=== PATIENT | male | born 1950 | race Two or more races ===

== ENCOUNTER → 2017-01-27 | Outpatient (CLI) | payer MEDICARE, MEDICAID ==
[~2017-01-27] MED LIST: AMLO10TA2 PO; ASPI-515 PO; BIFI4CAP PO; CARV6.252 PO; CEPH-376 PO; CHOL500050 PO; CINA30TA PO; CULTURELLE; EMLA CREAM; ENAL20TA PO; GABA300C10 PO; GLYB5TAB3 PO; INSU100I28 SQ; INSULIN ASPART SQ-INSULIN; LINA5TAB PO; PANT40TA5 PO; PRAS10TA4 PO; SEVE800T PO; SIMV40TA3 PO; TICA90TA PO
== END | disposition home or self-care (01) ==
LOC: CFH 07:44
PROVIDERS: ATTEND Nurse Practitioner Family
DX: L89.620 Pressure ulcer of left heel, unstageable (principal); M21.6X2 Other acquired deformities of left foot; M25.475 Effusion, left foot

== ENCOUNTER → 2017-02-02 | Outpatient (CLI) | payer MEDICARE, MEDICAID | END | disposition home or self-care (01) | LOC: WOUND 10:07 | PROVIDERS: ATTEND Nurse Practitioner Family | DX: T87.89 Other complications of amputation stump (principal); E11.621 Type 2 diabetes mellitus with foot ulcer; L89.620 Pressure ulcer of left heel, unstageable; E11.622 Type 2 diabetes mellitus with other skin ulcer; L97.811 Non-pressure chronic ulcer of other part of right lower leg limited to breakdown of skin; E11.51 Type 2 diabetes mellitus with diabetic peripheral angiopathy without gangrene; E11.22 Type 2 diabetes mellitus with diabetic chronic kidney disease; I12.0 Hypertensive chronic kidney disease with stage 5 chronic kidney disease or end stage renal disease; N18.6 End stage renal disease; Z99.2 Dependence on renal dialysis; E78.00 Pure hypercholesterolemia, unspecified; F41.9 Anxiety disorder, unspecified; E78.5 Hyperlipidemia, unspecified; Z79.4 Long term (current) use of insulin; Y83.5 Amputation of limb(s) as the cause of abnormal reaction of the patient, or of later complication, without mention of misadventure at the time of the procedure | CPT/HCPCS: G0463; WOU0463 ==

== ENCOUNTER → 2017-02-16 | Outpatient (CLI) | payer MEDICARE, MEDICAID | END | disposition home or self-care (01) | LOC: WOUND 10:44 | PROVIDERS: ATTEND Internal Medicine | DX: E11.621 Type 2 diabetes mellitus with foot ulcer (principal); L89.620 Pressure ulcer of left heel, unstageable; E11.51 Type 2 diabetes mellitus with diabetic peripheral angiopathy without gangrene; E11.22 Type 2 diabetes mellitus with diabetic chronic kidney disease; I12.0 Hypertensive chronic kidney disease with stage 5 chronic kidney disease or end stage renal disease; N18.6 End stage renal disease; E78.5 Hyperlipidemia, unspecified; F41.9 Anxiety disorder, unspecified; Z99.2 Dependence on renal dialysis; Z79.4 Long term (current) use of insulin; Z89.511 Acquired absence of right leg below knee | CPT/HCPCS: G0463; WOU0463 ==

== ENCOUNTER 2017-02-23 13:25 | Inpatient (IN) | payer MEDICARE, MEDICAID ==
[~2017-02-23] VITALS: Ht 167.6 cm; Wt 71.3 kg
[~2017-02-23 13:25] MED LIST changes: +ETOMIDATE 20 MG/10 ML ONE; +PROPOFOL 10 MG/ML, 100ML IV ONE; +PROPOFOL 10 MG/ML, 20ML ONE; +SUCCINYLCHOLINE 20 MG/ML, 10ML ONE
[2017-02-23] MEDS ORDERED: SODIUM CHLORIDE 0.9% 1,000ML IVBOLUS ONE (14:00)
[2017-02-23] MEDS ORDERED: SODIUM CHLORIDE FLUSH 10ML SYR IVF ONE (14:00)
[2017-02-23] MEDS ORDERED: VANCOMYCIN PER PHARMACY MC ONE (14:00)
[2017-02-23] MEDS ORDERED: PIPERACILLIN/TAZO/PMX 3.375GM 50 ML IVPB ONE (14:00)
[2017-02-23] MEDS ORDERED: VANCOMYCIN 1,500 MG in SODIUM CHLORIDE 0.9% 250 ML IV ONE (14:00)
[2017-02-23] MEDS ORDERED: PIPERACILLIN/TAZO/PMX 3.375GM 50 ML ONE (14:36)
[2017-02-23 14:48] LABS: BLOOD UREA NITROGEN 55 mg/dL (7-18)
[2017-02-23 14:51] LABS: ASPARTATE AMINO TRANSFERASE 21 U/L (15-37)
[2017-02-23] MEDS ORDERED: FENTANYL PF 100 MCG/2ML ONE ×2 (15:12→17:43)
[2017-02-23 15:37] LABS: ANISOCYTOSIS 2+; MICROCYTOSIS 1+
[2017-02-23 15:39] LABS: OVALOCYTES 1+; POIKILOCYTOSIS 1+; POLYCHROMASIA 1+
[2017-02-23 15:40] LABS: LARGE PLATELETS 1+
[2017-02-23] MEDS ORDERED: LACTULOSE 20 GM/30 ML UDC NG PRN (16:00)
[2017-02-23] MEDS ORDERED: BISACODYL 10 MG SUPP PR PRN (16:00)
[2017-02-23] MEDS ORDERED: PHARMACY MAY ADJ FOR RENAL FX MC SCH (16:00)
[2017-02-23] MEDS ORDERED: SODIUM CHLORIDE 0.9%, 250ML IV ONE (16:00)
[2017-02-23] MEDS: ALBUTEROL/IPRATROPIUM 2.5MG/0.5MG, 3 ML INLINE SCH ×3 (16:00→22:25)
[2017-02-23] MEDS ORDERED: LIDOCAINE-MPF 1%, 2ML ENDO PRN (16:00)
[2017-02-23] MEDS ORDERED: SENNOSIDES 8.8 MG/5 ML ORAL SOL NG PRN (16:00)
[2017-02-23] MEDS ORDERED: SENNA/DOCUSATE TABLET NG PRN (16:00)
[2017-02-23 16:37] LABS: ABG COLLECTION SITE LEFT FEMORAL
[2017-02-23] MEDS ORDERED: ALBUTEROL/IPRATROPIUM 2.5MG/0.5MG, 3 ML ONE (16:47)
[2017-02-23] MEDS ORDERED: POLYETHYLENE GLYCOL 17 GM PACKET PO PRN (17:00)
[2017-02-23] MEDS: PROPOFOL 100 ML IV PRN ×2 (17:00→17:12)
[2017-02-23] MEDS ORDERED: OXYcodone IR 5MG TABLET PO PRN (17:00)
[2017-02-23] MEDS ORDERED: ONDANSETRON 2MG/ML, 2ML IVP PRN (17:00)
[2017-02-23] MEDS: FENTANYL PF 100 MCG/2ML IVPush PRN ×2 (17:09→20:51)
[2017-02-23 17:21] LABS: ACETAMINOPHEN < 2 mcg/mL (10-30)
[2017-02-23 17:30] LABS: IS PT STATUS REG ER OR PRE ER? YES
[2017-02-23 19:30] VITALS: BP 89/59
[2017-02-23] MEDS ORDERED: NOREPINEPHRINE 1 MG/ML, 4ML ONE (20:08)
[2017-02-23] MEDS ORDERED: FAMOTIDINE 20 MG/2 ML IV SCH (21:00)
[2017-02-23] MEDS ORDERED: VASOPRESSIN 100 UNIT in SODIUM CHLORIDE 0.9% 495 ML IV PRN (21:00)
[2017-02-23] MEDS: INSULIN REGULAR 100 UNITS/ML, 3ML VIAL SQ-INSULIN SCH (21:00)
[2017-02-23] MEDS: SODIUM CHLORIDE 0.9% 1,000 ML IV SCH (21:49)
[2017-02-23] MEDS: CEFTRIAXONE PMX 1GM/50ML 50 ML IV SCH (21:54)
[2017-02-23] MEDS: NOREPINEPHRINE 4 MG in SODIUM CHLORIDE 0.9% 246 ML IV PRN (21:55)
[2017-02-23] MEDS: FAMOTIDINE 20 MG/2 ML IV SCH (21:59)
[2017-02-23] MEDS: AZITHROMYCIN 500 MG in SODIUM CHLORIDE 0.9% 250 ML IV SCH (21:59)
[2017-02-24] MEDS: NOREPINEPHRINE 4 MG in SODIUM CHLORIDE 0.9% 246 ML IV PRN ×2 (00:02→06:24)
[2017-02-24] MEDS: PROPOFOL 100 ML IV PRN ×3 (00:05→19:00)
[2017-02-24 00:37] LABS: IS PT STATUS REG ER OR PRE ER? NO
[2017-02-24] MEDS: ALBUTEROL/IPRATROPIUM 2.5MG/0.5MG, 3 ML INLINE SCH ×8 (02:20→22:00)
[2017-02-24] MEDS: SODIUM CHLORIDE 0.9% 1,000 ML IV SCH ×2 (02:58→12:58)
[2017-02-24 04:10] LABS: ABG COLLECTION SITE RIGHT RADIAL; COLLATERAL CIRCULATION TESTING NORMAL
[2017-02-24 04:58] LABS: BLOOD UREA NITROGEN 60 mg/dL (7-18)
[2017-02-24] MEDS: FAMOTIDINE 20 MG/2 ML IV SCH (05:00)
[2017-02-24 05:01] LABS: ASPARTATE AMINO TRANSFERASE 18 U/L (15-37)
[2017-02-24] MEDS: SENNA/DOCUSATE TABLET PO SCH (08:51)
[2017-02-24] MEDS: INSULIN REGULAR 100 UNITS/ML, 3ML VIAL SQ-INSULIN SCH ×4 (09:02→20:24)
[2017-02-24] MEDS: CEFTRIAXONE PMX 1GM/50ML 50 ML IV SCH (17:13)
[2017-02-24] MEDS: AZITHROMYCIN 500 MG in SODIUM CHLORIDE 0.9% 250 ML IV SCH (17:14)
[2017-02-25] MEDS: ALBUTEROL/IPRATROPIUM 2.5MG/0.5MG, 3 ML INLINE SCH ×6 (01:53→22:00)
[2017-02-25] MEDS: PROPOFOL 100 ML IV PRN (02:56)
[2017-02-25] MEDS: NOREPINEPHRINE 4 MG in SODIUM CHLORIDE 0.9% 246 ML IV PRN ×3 (02:59→22:10)
[2017-02-25] MEDS: FENTANYL PF 100 MCG/2ML IVPush PRN ×3 (03:22→21:03)
[2017-02-25 04:58] LABS: ABG COLLECTION SITE LEFT BRACHIAL
[2017-02-25 05:25] LABS: BLOOD UREA NITROGEN 40 mg/dL (7-18)
[2017-02-25] MEDS: INSULIN REGULAR 100 UNITS/ML, 3ML VIAL SQ-INSULIN SCH ×4 (08:11→20:53)
[2017-02-25] MEDS: FAMOTIDINE 20 MG/2 ML IV SCH (08:11)
[2017-02-25] MEDS: SENNA/DOCUSATE TABLET PO SCH (09:00)
[2017-02-25] MEDS ORDERED: SODIUM CHLORIDE 0.9% 1,000 ML IV SCH (16:58)
[2017-02-25] MEDS: AZITHROMYCIN 500 MG in SODIUM CHLORIDE 0.9% 250 ML IV SCH (17:36)
[2017-02-25] MEDS: CEFTRIAXONE PMX 1GM/50ML 50 ML IV SCH (17:36)
[2017-02-26] MEDS: ALBUTEROL/IPRATROPIUM 2.5MG/0.5MG, 3 ML INLINE SCH ×6 (02:00→22:00)
[2017-02-26] MEDS: FENTANYL PF 100 MCG/2ML IVPush PRN ×3 (03:42→20:05)
[2017-02-26 04:44] LABS: ABG COLLECTION SITE RIGHT BRACHIAL
[2017-02-26 04:49] LABS: BLOOD UREA NITROGEN 48 mg/dL (7-18)
[2017-02-26] MEDS: NOREPINEPHRINE 4 MG in SODIUM CHLORIDE 0.9% 246 ML IV PRN (08:49)
[2017-02-26] MEDS: FAMOTIDINE 20 MG/2 ML IV SCH (09:38)
[2017-02-26] MEDS: SENNA/DOCUSATE TABLET PO SCH (09:38)
[2017-02-26] MEDS: INSULIN REGULAR 100 UNITS/ML, 3ML VIAL SQ-INSULIN SCH ×3 (10:56→20:49)
[2017-02-26] MEDS: HEPARIN 5,000 UNITS/ML, 1ML SQ SCH (16:47)
[2017-02-26] MEDS: CEFTRIAXONE PMX 1GM/50ML 50 ML IV SCH (16:56)
[2017-02-26] MEDS: NOREPINEPHRINE 8 MG in SODIUM CHLORIDE 0.9% 242 ML IV PRN (16:57)
[2017-02-26] MEDS: AZITHROMYCIN 500 MG in SODIUM CHLORIDE 0.9% 250 ML IV SCH (18:30)
[2017-02-26] MEDS: LORazepam 2 MG/ML, 1ML IVPush PRN (20:05)
[2017-02-27] MEDS: NOREPINEPHRINE 8 MG in SODIUM CHLORIDE 0.9% 242 ML IV PRN ×2 (00:50→06:35)
[2017-02-27] MEDS: HEPARIN 5,000 UNITS/ML, 1ML SQ SCH ×2 (00:50→07:27)
[2017-02-27] MEDS: ALBUTEROL/IPRATROPIUM 2.5MG/0.5MG, 3 ML INLINE SCH ×3 (02:00→10:00)
[2017-02-27 04:08] LABS: BLOOD UREA NITROGEN 45 mg/dL (7-18)
[2017-02-27] MEDS: INSULIN REGULAR 100 UNITS/ML, 3ML VIAL SQ-INSULIN SCH ×2 (04:24→09:00)
[2017-02-27] MEDS: FENTANYL PF 100 MCG/2ML IVPush PRN (04:24)
[2017-02-27 04:34] LABS: ABG COLLECTION SITE LEFT RADIAL; COLLATERAL CIRCULATION TESTING NORMAL
[2017-02-27 06:13] LABS: ANISOCYTOSIS 1+; MICROCYTOSIS 1+; OVALOCYTES 1+; POLYCHROMASIA 1+
[2017-02-27 06:14] LABS: LARGE PLATELETS 1+
[2017-02-27] MEDS ORDERED: DOBUTAMINE/D5W PMX 250 ML IV PRN (09:00)
[2017-02-27] MEDS ORDERED: DOBUTAMINE 250 MG in SODIUM CHLORIDE 0.9% 230 ML IV PRN (09:00)
[2017-02-27] MEDS: FAMOTIDINE 20 MG/2 ML IV SCH (09:42)
[2017-02-27] MEDS: SENNA/DOCUSATE TABLET PO SCH (09:43)
[2017-02-27] MEDS ORDERED: SODIUM CHLORIDE 0.9%, 250ML IVBOLUS ONE (10:00)
[2017-02-27] MEDS ORDERED: EPINEPHRINE 1 MG in SODIUM CHLORIDE 0.9% 249 ML IV PRN (10:30)
[2017-02-27] MEDS ORDERED: NOREPINEPHRINE 16 MG in SODIUM CHLORIDE 0.9% 242 ML IV PRN (11:00)
[2017-02-27] MEDS ORDERED: morphine SULFATE 10 MG/ML, 1ML ONE (11:19)
[2017-02-27] MEDS: LORazepam 2 MG/ML, 1ML IVPush PRN (11:29)
[2017-02-27] MEDS ORDERED: morphine SULFATE 10 MG/ML, 1ML IVPush ONE (11:30)
[2017-02-27] MEDS ORDERED: morphine SULFATE 10 MG/ML, 1ML IV ONE (12:00)
[2017-02-27] MEDS ORDERED: LORazepam 2 MG/ML, 1ML IV PRN (12:00)
[2017-02-27] MEDS ORDERED: ATROPINE OPHTH SOLN 1%, 2ML PO PRN (12:00)
[2017-02-27] MEDS ORDERED: LORazepam 2 MG/ML, 1ML IV ONE (12:00)
[2017-02-27] MEDS ORDERED: morphine SULFATE 10 MG/ML, 1ML IV PRN (12:00)
== END 2017-02-27 12:35 | disposition expired | DRG 871 ==
LOC: ED 16:31 → EDIP 16:32 → ED 16:53 → CCU 18:07
PROVIDERS: ADMIT Internal Medicine; ATTEND Internal Medicine
PROC: 0BH17EZ Insertion of Endotracheal Airway into Trachea, Via Natural or Artificial Opening (ICD-10-PCS; principal; 2017-02-23)
PROC: 5A1945Z Respiratory Ventilation, 24-96 Consecutive Hours (ICD-10-PCS; 2017-02-23)
PROC: 02HV33Z Insertion of Infusion Device into Superior Vena Cava, Percutaneous Approach (ICD-10-PCS; 2017-02-23)
DX: A41.9 Sepsis, unspecified organism (principal); N18.6 End stage renal disease; J18.9 Pneumonia, unspecified organism; G93.41 Metabolic encephalopathy; R65.21 Severe sepsis with septic shock; J96.01 Acute respiratory failure with hypoxia; E43 Unspecified severe protein-calorie malnutrition; I50.43 Acute on chronic combined systolic (congestive) and diastolic (congestive) heart failure; E87.1 Hypo-osmolality and hyponatremia; I13.2 Hypertensive heart and chronic kidney disease with heart failure and with stage 5 chronic kidney disease, or end stage renal disease; Z99.2 Dependence on renal dialysis; E11.22 Type 2 diabetes mellitus with diabetic chronic kidney disease; D63.1 Anemia in chronic kidney disease; E11.42 Type 2 diabetes mellitus with diabetic polyneuropathy; E11.51 Type 2 diabetes mellitus with diabetic peripheral angiopathy without gangrene; E78.00 Pure hypercholesterolemia, unspecified; E78.5 Hyperlipidemia, unspecified; I08.1 Rheumatic disorders of both mitral and tricuspid valves; I25.10 Atherosclerotic heart disease of native coronary artery without angina pectoris; I25.5 Ischemic cardiomyopathy; I27.2 Other secondary pulmonary hypertension; F41.9 Anxiety disorder, unspecified; B96.20 Unspecified Escherichia coli [E. coli] as the cause of diseases classified elsewhere; G89.29 Other chronic pain; M54.9 Dorsalgia, unspecified; R26.2 Difficulty in walking, not elsewhere classified; I77.1 Stricture of artery; K74.60 Unspecified cirrhosis of liver; Z51.5 Encounter for palliative care; Z66 Do not resuscitate; Z68.25 Body mass index [BMI] 25.0-25.9, adult; Z82.49 Family history of ischemic heart disease and other diseases of the circulatory system; Z83.3 Family history of diabetes mellitus; Z89.511 Acquired absence of right leg below knee; Z95.5 Presence of coronary angioplasty implant and graft
CPT/HCPCS: 31500; 36415; 36556; 36600; 70450; 71010; 76700; 80048; 80053; 80307; 80329; 82140; 82248; 82533; 82803; 82805; 82962; 82977; 83605; 83690; 83735; 83880; 84100; 84145; 84443; 84478; 84484; 85025; 85610; 87040; 87070; 87077; 87081; 87186; 87205; 93005; 93926; 94002; 94003; 94640; 96365; 96366; 96368; C8929; J0456; J0696; J1644; J1815; J2543; J2704; J3010; J3370; J7620; G0480; J0171; J0330; J1250; J2060; J2270; J7030; J7040; J7050; S0028

== ENCOUNTER → 2017-02-23 | Outpatient (CLI) | payer MEDICARE, MEDICAID | END | disposition home or self-care (01) | LOC: WOUND 13:00 | PROVIDERS: ATTEND Nurse Practitioner Family | DX: T81.89XD Other complications of procedures, not elsewhere classified, subsequent encounter (principal); E11.621 Type 2 diabetes mellitus with foot ulcer; L89.620 Pressure ulcer of left heel, unstageable; L97.521 Non-pressure chronic ulcer of other part of left foot limited to breakdown of skin; E11.51 Type 2 diabetes mellitus with diabetic peripheral angiopathy without gangrene; E78.5 Hyperlipidemia, unspecified; Z79.4 Long term (current) use of insulin; Z89.511 Acquired absence of right leg below knee; E78.00 Pure hypercholesterolemia, unspecified; Z86.718 Personal history of other venous thrombosis and embolism; G89.18 Other acute postprocedural pain; E11.22 Type 2 diabetes mellitus with diabetic chronic kidney disease; I12.0 Hypertensive chronic kidney disease with stage 5 chronic kidney disease or end stage renal disease; N18.6 End stage renal disease; Z99.2 Dependence on renal dialysis; F41.9 Anxiety disorder, unspecified; Y83.8 Other surgical procedures as the cause of abnormal reaction of the patient, or of later complication, without mention of misadventure at the time of the procedure | CPT/HCPCS: G0463; WOU0463 ==